=== PATIENT | female | born 1940 | race Caucasian/White ===

== ENCOUNTER 2019-10-23 10:22 | Outpatient (CLI) | payer MEDICARE, OTHER, SELFPAY ==
--- NOTE | ~2019-10-23 | MM_ITS ---
EXAMINATION: MM screening [facility] BI w mohamud HISTORY: Screening mammogram TECHNIQUE: Craniocaudal and mediolateral oblique 3-D tomosynthesis images were obtained and synthetic 2-D images were generated. CAD analysis was submitted and interpreted. COMPARISON: 08/27/2018, 08/23/2017, 08/21/2016 BREAST PARENCHYMAL COMPOSITION: There are scattered areas of fibroglandular density. FINDINGS: Scattered benign-appearing calcifications are present. There is no evidence of suspicious m ass, calcification, or architectural distortion to suggest malignancy in either breast. There has bee n no suspicious interval change. IMPRESSION: 1. No mammographic evidence of malignancy. 2. Recommend routine screening mammography in one year. BI-RADS Category 2: Benign finding(s). Reviewed, dictated and finalized at location A.
== END 2019-10-23 10:23 | disposition home or self-care (01) ==
PROVIDERS: PCP Internal Medicine; Visit Provider Obstetrics & Gynecology
DX: Z12.31 Encounter for screening mammogram for malignant neoplasm of breast (principal)
CPT/HCPCS: 77063; 77067

== ENCOUNTER 2020-09-27 12:54 | Outpatient (CLI) | payer MEDICARE, OTHER, SELFPAY ==
--- NOTE | ~2020-09-27 | DEXA_ITS ---
Bone Density Report Name: Allyssa Flynn Age: 80 Sex: Female Ethnicity: White Date of : 1940 Indication: osteopenia; monitoring treatment; height loss; postmenopausal Referring Provider: Lisa De Los Santos Study: Bone densitometry was performed. Exam Date: September 27, 2020 Accession number: [id number] Bone Density: Region BMD T-score Z-score Classification AP Spine (L2, L3, L4) 0.895 -1.7 1.0 Osteopenia Femoral Neck (Left) 0.681 -1.5 0.7 Osteopenia Total Hip (Left) 0.760 -1.5 0.5 Osteopenia Total Hip Bilateral Avg 0.785 -1.3 0.7 Osteopenia Femoral Neck (Right) 0.662 -1.7 0.6 Osteopenia Total Hip (Right) 0.808 -1.1 0.9 Osteopenia World Health Organization criteria for BMD impression classify patients as: Normal (T-score at or above -1.0), Osteopenia (T-score between -1.0 and -2.5), or Osteoporosis (T-score at or below -2.5). 10-year Fracture Risk: FRAX not reported because: Treated for osteoporosis Previous Exams: Region Exam Age BMD T-score BMD Change BMD Change Date g/cm2 vs Baseline vs Previous AP Spine(L2, L3, L4) 09/27/2020 80 0.895 -1.7 -0.035(-3.8%)# 0.001(0.2%) 08/27/2018 78 0.893 -1.7 -0.036(-3.9%)# -0.039(-4.2%)* 08/03/2014 74 0.932 -1.3 0.002(0.3%)# 0.002(0.3%)# 10/15/2011 71 0.930 -1.4 Total Hip(Left) 09/27/2020 80 0.760 -1.5 -0.120(-13.6%) -0.024(-3.1%) 08/27/2018 78 0.784 -1.3 -0.096(-10.9%) -0.073(-8.5%)* 08/21/2016 76 0.858 -0.7 -0.023(-2.6%)# 0.016(1.9%) 08/03/2014 74 0.841 -0.8 -0.039(-4.4%)# -0.039(-4.4%)# 10/15/2011 71 0.880 -0.5 Total Hip(Right) 09/27/2020 80 0.808 -1.1 -0.070(-7.9%)# -0.035(-4.2%)* 08/27/2018 78 0.844 -0.8 -0.034(-3.9%)# -0.046(-5.2%)* 08/21/2016 76 0.890 -0.4 0.012(1.3%)# 0.027(3.2%)* 08/03/2014 74 0.862 -0.7 -0.016(-1.8%)# -0.016(-1.8%)# 10/15/2011 71 0.878 -0.5 *Denotes significance at 95% confidence level, LSC for AP Spine = 0.022 g/cm2, LSC for Total Hip = 0.027 g/cm2 Clinical Information Provided by Patient: Is being treated for osteoporosis Has used the following medications: Evista (i.e. raloxifene), Vitamin D, Calcium Patient maximum height was 65 Menopause Age: 53 Onset of menses at age 16 Number of children 2 Impression: The patient has low bone mass, based on the Total Spine T-score. The BMD for the Total Hip(Right) decreased, changing by -4.2% since the last DXA exam. Discussion: SIGNIF
== END 2020-09-27 12:55 | disposition home or self-care (01) ==
LOC: ANHIMG 12:58
PROVIDERS: PCP Internal Medicine; Visit Provider Advanced Practice Midwife
DX: Z78.0 Asymptomatic menopausal state (principal); M85.851 Other specified disorders of bone density and structure, right thigh; M85.852 Other specified disorders of bone density and structure, left thigh
CPT/HCPCS: 77080

== ENCOUNTER 2020-10-27 14:16 | Outpatient (CLI) | payer MEDICARE, OTHER, SELFPAY ==
--- NOTE | ~2020-10-27 | MM_ITS ---
EXAMINATION: MM screening [facility] BI w mohamud HISTORY: Screening mammogram TECHNIQUE: Craniocaudal and mediolateral oblique 3-D tomosynthesis images were obtained and synthetic 2-D images were generated. CAD analysis was submitted and interpreted. COMPARISON: 10/23/2019, 08/27/2018, 08/23/2017 BREAST PARENCHYMAL COMPOSITION: There are scattered areas of fibroglandular density. FINDINGS: Scattered benign-appearing calcifications are present. There is no evidence of suspicious m ass, calcification, or architectural distortion to suggest malignancy in either breast. There has bee n no suspicious interval change. IMPRESSION: 1. No mammographic evidence of malignancy. 2. Recommend routine screening mammography in one year. BI-RADS Category 2: Benign finding(s). Reviewed, dictated and finalized at location A.
== END 2020-10-27 14:17 | disposition home or self-care (01) ==
LOC: ANHIMG 14:19
PROVIDERS: PCP Internal Medicine; Visit Provider Advanced Practice Midwife
DX: Z12.31 Encounter for screening mammogram for malignant neoplasm of breast (principal)
CPT/HCPCS: 77063; 77067